=== PATIENT | female | born 2000 | race Caucasian/White ===

== ENCOUNTER 2024-06-04 00:17 | Emergency (ER) | payer MEDICAID ==
[~2024-06-04] VITALS: Ht 165.1 cm; Wt 73.0 kg
[2024-06-04 00:20] VITALS: TEMP 98.3; O2SAT 99
[2024-06-04 01:00] LABS: CARBON DIOXIDE 29 mEq/L (21-32); CHLORIDE 106 mEq/L (98-107); POTASSIUM 3.8 mEq/L (3.5-5.1); SODIUM 140 mEq/L (136-145)
[2024-06-04 01:04] LABS: BASOPHILS % 0.4 % (0.0-2.0); DIFFERENTIAL COMMENT 0; EOSINOPHILS % 1.7 % (0.0-5.0); HEMATOCRIT. 35.5 % (36.0-48.0); HEMOGLOBIN. 11.4 g/dL (12.0-16.0); LYMPHOCYTES % 30.3 % (20.0-50.0); MEAN CORPUSCULAR HEMOGLOBIN 24.6 pg (28.0-32.0); MEAN CORPUSCULAR HGB CONC 32.1 g/dL (31.0-37.0); MEAN CORPUSCULAR VOLUME 76.7 fL (81.0-99.0); MEAN PLATELET VOLUME 8.2 fl (7.4-10.4); MONOCYTES % 4.1 % (2.0-8.0); NEUTROPHILS % 63.5 % (40.0-76.0); PLATELET 442 x1000/uL (130-400); RED BLOOD CELL COUNT 4.63 mill/uL (4.2-5.4); RED CELL DISTRIBUTION WIDTH 17.4 % (11.6-14.6); WHITE BLOOD COUNT 9.4 x1000/uL (4.5-11.0)
[2024-06-04 01:06] LABS: GLUCOSE 110 mg/dL (70-105); UREA NITROGEN BLOOD 16 mg/dL (9-23)
[2024-06-04 01:07] LABS: ALANINE AMINOTRANSFERASE 42 IU/L (10-49); ASPARTATE AMINOTRANSFERASE 31 IU/L (<34)
[2024-06-04 01:08] LABS: ALBUMIN 4.8 g/dL (3.2-4.8); BILIRUBIN TOTAL 0.4 mg/dL (0.1-1.0); PROTEIN TOTAL 7.8 g/dL (6.0-8.3)
[2024-06-04 01:27] LABS: BILIRUBIN DIRECT < 0.1 mg/dL (<=3.0)
[2024-06-04 01:28] LABS: CLARITY URINE CLEAR (CLEAR); COLOR URINE ORANGE (YELLOW); GLUCOSE URINE NEGATIVE (NEGATIVE); KETONES URINE NEGATIVE (NEGATIVE); LEUKOCYTE ESTERASE URINE 3+ (NEGATIVE); NITRITE URINE NEGATIVE (NEGATIVE); OCCULT BLOOD URINE 3+ (NEGATIVE); PROTEIN URINE 2+ (NEGATIVE); UROBILINOGEN URINE 0.2 E.U./dL (0.2-1.0)
[2024-06-04 01:44] LABS: HCG SCREEN NEGATIVE
[2024-06-04] MEDS: SODIUM CHLORIDE 0.9% 1,000 ML IV ONE (02:28)
[2024-06-04] MEDS: ONDANSETRON HCL 4MG/2ML INJ IV NR (02:30)
[2024-06-04] MEDS: ONDANSETRON HCL 4MG/2ML INJ IV STA (02:30)
[2024-06-04] MEDS: KETOROLAC 30MG/ML VIAL IV NR (02:30)
[2024-06-04] MEDS: KETOROLAC 30MG/ML VIAL IV STA (02:32)
[2024-06-04 03:28] LABS: SQUAMOUS EPITHELIAL CELL URINE FEW /lpf (RARE/1+)
[2024-06-04 03:30] LABS: RBC URINE 25-50 /hpf (0-2)
[2024-06-04 03:33] LABS: BACTERIA URINE 1+
[2024-06-04] MEDS ORDERED: NAPR-420 MT (03:47)
[2024-06-04] MEDS ORDERED: ONDA4TAB50 MT (03:47)
[2024-06-04] MEDS ORDERED: CEPH500C2 MT (03:47)
[2024-06-04 05:06] VITALS: BP 107/67; PULSE 61; RESP 12; O2SAT 100
== END 2024-06-04 05:06 | disposition home or self-care (01) ==
LOC: ER 00:43
DX: N13.2 Hydronephrosis with renal and ureteral calculous obstruction (principal); Z87.442 Personal history of urinary calculi; Z79.899 Other long term (current) drug therapy
CPT/HCPCS: 99285; 74176; 96374; 96361; 96375; 80076; 80048; 81003; 81025; 84703; 83690; 85025; 85610; 36415; J1885; J2405; J7030

== ENCOUNTER 2025-04-01 10:30 | Emergency (ER) | payer MEDICAID ==
[~2025-04-01] VITALS: Ht 149.9 cm; Wt 64.0 kg
[~2025-04-01 10:30] MED LIST: LEVO-65 MT; NAPR-420 MT; ONDA4TAB50 MT
[2025-04-01 10:45] VITALS: O2SAT 100
[2025-04-01 11:06] LABS: BASOPHILS % 0.4 % (0.0-2.0); EOSINOPHILS % 1.0 % (0.0-5.0); HEMATOCRIT. 35.9 % (36.0-48.0); HEMOGLOBIN. 11.3 g/dL (12.0-16.0); LYMPHOCYTES % 14.1 % (20.0-50.0); MEAN PLATELET VOLUME 7.7 fl (7.4-10.4); MONOCYTES % 3.6 % (2.0-8.0); NEUTROPHILS % 80.9 % (40.0-76.0); PLATELET 474 x1000/uL (130-400); RED BLOOD CELL COUNT 4.69 mill/uL (4.2-5.4); RED CELL DISTRIBUTION WIDTH 15.4 % (11.6-14.6)
[2025-04-01] MEDS: ONDANSETRON HCL 4MG/2ML INJ IV ONE (11:15)
[2025-04-01] MEDS: KETOROLAC 15MG/ML VIAL IV ONE (11:15)
[2025-04-01 11:22] LABS: CREATININE 0.9 mg/dL (0.6-1.0)
[2025-04-01 11:23] LABS: UREA NITROGEN BLOOD 11 mg/dL (9-23)
[2025-04-01] MEDS: SODIUM CHLORIDE 0.9% 1,000 ML IV ONE (11:59)
[2025-04-01 12:15] LABS: ASPARTATE AMINOTRANSFERASE 19 IU/L (<34); BILIRUBIN DIRECT < 0.1 mg/dL (<=3.0); BILIRUBIN TOTAL 0.4 mg/dL (0.1-1.0); PROTEIN TOTAL 7.7 g/dL (6.0-8.3)
[2025-04-01 12:28] LABS: HCG SCREEN NEGATIVE
[2025-04-01 14:19] LABS: CLARITY URINE CLOUDY (CLEAR); COLOR URINE DARK YELLOW (YELLOW); GLUCOSE URINE NEGATIVE (NEGATIVE); KETONES URINE NEGATIVE (NEGATIVE); LEUKOCYTE ESTERASE URINE 3+ (NEGATIVE); NITRITE URINE NEGATIVE (NEGATIVE); OCCULT BLOOD URINE 3+ (NEGATIVE); PH URINE 6.5 (4.5-8.0); PROTEIN URINE 2+ (NEGATIVE); SPECIFIC GRAVITY URINE 1.012 (1.005-1.030); UROBILINOGEN URINE 0.2 E.U./dL (0.2-1.0)
[2025-04-01 14:30] LABS: SQUAMOUS EPITHELIAL CELL URINE 2+ /lpf (RARE/1+)
[2025-04-01 14:31] LABS: BACTERIA URINE 2+; RBC URINE TNTC /hpf (0-2); WBC URINE 25-50 /hpf (0-2)
[2025-04-01 14:32] LABS: MUCUS URINE TRACE /lpf (< = 2+)
[2025-04-01 14:33] LABS: CALCIUM OXALATE CRYSTALS URINE 1+ /lpf
[2025-04-01] MEDS ORDERED: CEFP200T13 MT (14:52)
[2025-04-01] MEDS ORDERED: IBUP-2030 MT (14:52)
[2025-04-01] MEDS ORDERED: TAMS-54 MT (14:52)
[2025-04-01 15:40] VITALS: BP 122/74; PULSE 83; RESP 16; TEMP 37.2; O2SAT 100
== END 2025-04-01 15:45 | disposition home or self-care (01) ==
LOC: ER 10:30
DX: N20.0 Calculus of kidney (principal); Z79.899 Other long term (current) drug therapy
CPT/HCPCS: 80076; 80048; 81003; 81025; 84703; 83690; 85025; 87086; 36415; 74176; 96361; 96374; 96375; 99285; J1885; J2405; J7030; Z7610